=== PATIENT | female | born 1970 | race Caucasian/White ===

== ENCOUNTER 2019-09-29 17:29 | Emergency (ER) | payer OTHER, SELFPAY ==
--- NOTE | ~2019-09-29 | XR_ITS ---
EXAMINATION: XR knee RT 3V DATE: 09/29/2019 19:09 INDICATION: Right knee pain TECHNIQUE: Three views of the right knee were obtained. COMPARISON: None. FINDINGS: Alignment is normal. No fracture or osteochondral lesion. There is mild tricompartmental os teoarthritis characterized by tiny marginal osteophytes. No joint effusion/synovitis. Soft tissues a re unremarkable. IMPRESSION: 1. No acute osseous abnormality. Reviewed, dictated and finalized at location A.
--- NOTE | ~2019-09-29 | US_ITS ---
EXAMINATION: US venous doppler LE RT DATE: 09/29/2019 18:44 INDICATION: Posterior knee pain and swelling TECHNIQUE: Mueller scale images without and with compression and Doppler images of the right lower extre mity veins were obtained. COMPARISON: None. FINDINGS: The right common femoral vein, profunda femoral vein, femoral vein, popliteal vein, peronea l trunk, posterior tibial veins, and greater saphenous vein are patent. IMPRESSION: 1. Patent right lower extremity veins. No evidence of deep venous thrombosis. Reviewed, dictated and finalized at location A.
[2019-09-29 17:34] VITALS: BP 181/97; PULSE 93; RESP 18; TEMP 36.9; O2SAT 100
--- NOTE | 2019-09-29 17:57 | ED.LOWEXIN ---
HPI - Extremity Injury (Lower) General Chief Complaint: Extremity Injury, Lower <Shea Adame PA-C - Last Filed: 09/29/19 19:34> Stated Complaint: right leg injury <YI Phelan Last Filed: 09/29/19 19:34> Time Seen by Provider: 09/29/19 17:39 <Shea Adame PA-C - Last Filed: 09/29/19 19:34> Source: patient <YI Phelan Last Filed: 09/29/19 19:34> Mode of arrival: wheelchair <YI Phelan Last Filed: 09/29/19 19:34> Limitations: no limitations <YI Phelan Last Filed: 09/29/19 19:34> History of Present Illness HPI Narrative: This is a 49-year-old female that presents emergency department after right knee injury this afternoon. Reports she stepped up into her truck and felt a pop in the right knee. Reports since she has had swelling and pain in the knee. Reports the pain radiates down into her calf. Denies decreased range of motion, erythema, or numbness. <YI Phelan Last Filed: 09/29/19 19:34> Related Data Home Medications: Home Medications Medication Instructions Recorded Confirmed blood sugar diagnostic #10 each 08/26/19 blood-glucose meter #1 each 08/26/19 cetirizine 10 mg tablet 10 mg PO DAILY 08/26/19 citalopram 40 mg tablet 40 mg PO DAILY 08/26/19 clonidine HCl 0.1 mg tablet 0.1 mg PO BID tablet 08/26/19 fluticasone propionate 50 2 spray NASAL DAILY 08/26/19 mcg/actuation nasal spray,suspension insulin aspart U-100 100 unit/mL 20 unit SUB-Q TID 08/26/19 subcutaneous solution insulin glargine 100 unit/mL (3 15 unit SUB-Q DAILY 08/26/19 mL) subcutaneous pen insulin syringe-needle U-100 0.5 #10 each 08/26/19 mL 29 gauge x 1/2 losartan 100 mg tablet 100 mg PO DAILY 08/26/19 ondansetron 4 mg disintegrating 4 mg PO QID PRN tablet 08/26/19 tablet pen needle, diabetic 32 gauge x #100 each 08/26/19 1/6 ropinirole 1 mg tablet See Rx Instructions PO BID 08/26/19 <Shea Adame PA-C - Last Filed: 09/29/19 19:34> Allergies/Adverse Reactions: Allergies Allergy/AdvReac Type Severity Reaction Status Date / Time bee venom protein (honey bee) Allergy Unknown Anaphylaxis Verified 09/29/19 17:39 Iodinated Contrast Media Allergy Unknown Anaphylaxis Verified 09/29/19 17:39 promethazine Allergy Unknown Cramping Verified 09/29/19 17:39 of the Muscles Contrast Media Allergy Unknown SWEELING, Uncoded 04/06/19 10:02 DIFFICULTY BREATHING <Shea Adame PA-C - Last Filed: 09/29/19 19:34> Review of Systems Review of Systems: Narrative: CONSTITUTIONAL: Denies fever. CARDIOVASCULAR: Reports edema. Denies chest pain RESPIRATORY: Denies dyspnea. SKIN: Denies rash MUSCULOSKELETAL: Reports joint pain, and myalgia. NEUROLOGIC: Denies numbness <Shea Adame PA-C - Last Filed: 09/29/19 19:34> All systems reviewed & are unremarkable except as noted in HPI and below <Shea Adame PA-C - Last Filed: 09/29/19 19:34> [facility] Past Medical History Medical History: Medical History (Updated 09/29/19 @ 19:34 by Shea Adame PA-C) Anxiety state DM w/o complication type II, uncontrolled Gastroesophageal reflux disease without esophagitis Hyperlipidemia NUPUR (obstructive sleep apnea) <Shea Adame PA-C - Last Filed: 09/29/19 19:34> Family History Family History: Family History (Updated 04/04/15 @ 15:36 by DOCTOR UNKNOWN) Mother Family history of osteoarthritis Family history of restless legs syndrome Other Diabetes mellitus Family history of coronary artery disease Family history of kidney disease Family history of mental disorder Hypertension <Shea Adame PA-C - Last Filed: 09/29/19 19:34> Social History Social History: Social History (Updated 09/29/19 @ 17:58 by Shea Adame PA-C) Alcohol intake: current Gender identity (if verbalized by the patient): Female <Shea Adame PA-C - Last
[2019-09-29 18:08] LABS: Basophils Absolute Auto 0.1 K/mm3 (0.0-0.1); Basophils Percent Auto 0.7 % (0.2-1.2); Eosinophils Absolute Auto 0.1 K/mm3 (0-0.3); Eosinophils Percent Auto 1.7 % (0-4.4); Hematocrit 45.2 % (37.0-47.0); Hemoglobin 14.5 g/dL (12.0-15.0); Immature Granulocyte Absolute 0.02 K/mm3 (0.00-0.031); Immature Granulocyte Percent A 0.2 % (0-0.5); Lymphocytes Absolute Auto 2.23 K/mm3 (0.9-3.2); Lymphocytes Percent Auto 26.4 % (18.3-44.2); Mean Corpuscular HGB Conc 32.1 g/dl (32-36); Mean Corpuscular Hemoglobin 26.5 pg (26-34); Mean Corpuscular Volume 82.6 fl (80-100); Mean Platelet Volume 10.3 fl (7.4-10.4); Monocytes Absolute Auto 0.5 K/mm3 (0.1-0.6); Monocytes Percent Auto 5.7 % (2.6-8.5); Neutrophils Absolute Auto 5.5 K/mm3 (1.3-6.7); Neutrophils Percent Auto 65.3 % (45.5-73.1); Platelet Count Result 202 k/mm3 (150-375); Red Blood Count 5.47 M/mm3 (4.2-5.4); Red Cell Distribution Width 14.4 % (11.5-14.5); White Blood Count 8.5 K/mm3 (4.5-10.0)
[2019-09-29 18:18] LABS: INR 1.1; Prothrombin Time 14.3 Seconds (11.1-14.7)
[2019-09-29 18:19] LABS: Partial Thromboplastin Time 32.6 SECONDS (22.3-36.8)
[2019-09-29 18:20] LABS: Blood Urea Nitrogen 7 mg/dL (7-17); Calcium 9.5 mg/dL (8.4-10.2); Carbon Dioxide 30 mmol/L (22-30); Chloride 103 mmol/L (98-107); Estimated CRCL calculation 144 ml/min; Estimated Glomerular Filt Rate > 60; Glucose 215 mg/dL (65-105); Sodium 140 mmol/L (137-145)
[2019-09-29 18:43] LABS: Erythrocyte Sedimentation Rate 19 mm/hr (0-20)
[2019-09-29 19:44] VITALS: BP 164/103; PULSE 83; RESP 22; O2SAT 100
[2019-09-29 19:55] VITALS: BP 164/103; PULSE 82; RESP 18; TEMP 36.8; O2SAT 100
== END 2019-09-29 19:57 | disposition home or self-care (01) ==
PROVIDERS: Physician Assistant; Emergency Provider Emergency Medicine; PCP Internal Medicine
DX: M25.561 Pain in right knee (principal); F41.9 Anxiety disorder, unspecified; E11.9 Type 2 diabetes mellitus without complications; K21.9 Gastro-esophageal reflux disease without esophagitis; E78.5 Hyperlipidemia, unspecified; G47.33 Obstructive sleep apnea (adult) (pediatric); Z79.4 Long term (current) use of insulin
CPT/HCPCS: 36415; 73562; 80048; 85025; 85610; 85652; 85730; 86140; 93971; 99284; A9270

== ENCOUNTER 2022-04-10 10:30 | Outpatient (RCR) | payer OTHER, SELFPAY ==
[2022-03-15 08:17] VITALS: BMI 47.0
[2022-03-15 08:59] VITALS: BMI 47.0
== END 2022-06-21 09:21 | disposition home or self-care (01) ==
LOC: ANHDMC 10:30
PROVIDERS: PCP Internal Medicine; Visit Provider Nurse Practitioner Family
DX: E11.65 Type 2 diabetes mellitus with hyperglycemia (principal); Z71.3 Dietary counseling and surveillance; Z71.89 Other specified counseling
CPT/HCPCS: 97802; G0108

== ENCOUNTER 2022-04-12 11:31 | Outpatient (CLI) | payer OTHER, SELFPAY ==
--- NOTE | ~2022-04-12 | US_ITS ---
EXAMINATION: US thyroid DATE: 04/12/2022 12:02 INDICATION: Nontoxic goiter, unspecified. TECHNIQUE: Multiple ultrasound images of the thyroid were obtained. COMPARISON: None. FINDINGS: The right thyroid lobe measures 6.8 x 3.6 x 3.6 cm. The left thyroid lobe measures 9.1 x 3.9 x 3.5 c m. The thyroid demonstrates diffusely heterogeneous echogenicity without area of normal parenchyma. Vascularity is normal. IMPRESSION: 1. Heterogeneous thyroid, likely multinodular goiter. Biopsy is not needed. Reviewed, dictated and finalized at location A.
== END 2022-04-12 11:32 | disposition home or self-care (01) ==
LOC: ANHIMG 11:32
PROVIDERS: PCP Internal Medicine; Visit Provider Nurse Practitioner Family
DX: E04.2 Nontoxic multinodular goiter (principal)
CPT/HCPCS: 76536

== ENCOUNTER 2022-10-17 14:30 | Outpatient (RCR) | payer OTHER, SELFPAY | END 2022-12-10 08:45 | disposition home or self-care (01) | LOC: ANHDMC 14:30 | PROVIDERS: PCP Internal Medicine; Visit Provider Nurse Practitioner Family | DX: E11.65 Type 2 diabetes mellitus with hyperglycemia (principal); Z71.89 Other specified counseling | CPT/HCPCS: 99199; G0109 ==

== ENCOUNTER 2023-04-11 14:45 | Outpatient (RCR) | payer OTHER, SELFPAY | END 2023-04-29 11:19 | disposition home or self-care (01) | LOC: ANHDMC 14:45 | PROVIDERS: PCP Family Medicine; Visit Provider Nurse Practitioner Family | DX: E11.65 Type 2 diabetes mellitus with hyperglycemia (principal); Z71.89 Other specified counseling | CPT/HCPCS: G0109 ==

== ENCOUNTER 2023-10-17 07:37 | Outpatient (CLI) | payer OTHER, SELFPAY ==
--- NOTE | ~2023-10-17 | US_ITS ---
Limited Abdominal Sonogram: Real-time sonographic imaging of the right upper quadrant was performed. Clinical History: Cirrhosis Findings: The liver appears heterogeneous, with no evidence of mass lesion or bile duct dilatation. Probable nodular contour of liver present. Main portal vein demonstrates normal direction of flow. Th e gallbladder is absent, compatible prior cholecystectomy. The common bile duct measures 3 mm. The v isualized pancreas, aorta, and IVC are unremarkable. Impression: Heterogeneous, nodular liver is compatible cirrhosis. Status post cholecystectomy. Reviewed, dictated and finalized at location . Impression: Heterogeneous, nodular liver is compatible cirrhosis. Status post cholecystectomy.
--- NOTE | ~2023-10-17 | XR_ITS ---
Supine and upright views of the abdomen Clinical history: Constipation Findings: Bowel gas pattern is nonspecific. No evidence for obstruction or free air. Cholecystectomy clips are present. No abnormal mass lesion or calcification is seen. Osseous structures are intact. Impression: No significant abnormality is seen. Reviewed, dictated and finalized at [facility]. Impression: No significant abnormality is seen.
== END 2023-10-17 07:38 | disposition home or self-care (01) ==
PROVIDERS: PCP Family Medicine; Visit Provider Family Medicine
DX: K59.00 Constipation, unspecified (principal); K74.60 Unspecified cirrhosis of liver; K74.00 Hepatic fibrosis, unspecified; Z90.49 Acquired absence of other specified parts of digestive tract
CPT/HCPCS: 74019; 76705